=== PATIENT | female | born 1985 | race Caucasian/White ===

== ENCOUNTER 2017-06-18 11:32 | Emergency (ER) | payer OTHER, SELFPAY ==
[2017-06-18 11:48] VITALS: BP 106/72; PULSE 92; RESP 18; TEMP 98.6; O2SAT 98
--- NOTE | 2017-06-18 12:33 | C.PDOC ---
History Of Present Illness 31 year old female is brought to the ED after rapid response was called. Patient was was having her first blood work check up, after which she became dizzy patient managed to catch herself and a supervisor laboratory helped her lay down. On the ED patient states feeling a little dizzy but denies any other symptoms. Vital signs are stable, patient states that her dizziness resolved, feels much better and wants to go home. Time Seen by Provider: 06/18/17 12:27 Chief Complaint (Nursing): Dizziness/Lightheaded History Per: Patient History/Exam Limitations: no limitations Onset/Duration Of Symptoms: Hrs Current Symptoms Are (Timing): Gone Activity At Onset Of Symptoms: Standing Associated Symptoms Preceding Syncopal Episode: Lightheadedness Seizure Or Post-ictal Symptoms: None Fall Associated With With Symptoms: No Severity: None Recent travel outside of the [place]: No Additional History Per: Patient Past Medical History Reviewed: Historical Data, Nursing Documentation, Vital Signs Vital Signs: Last Vital Signs Temp 98.6 F 06/18/17 11:47 Pulse 92 H 06/18/17 11:47 Resp 18 06/18/17 11:47 BP 106/72 06/18/17 11:47 Pulse Ox 98 06/18/17 12:33 - Medical History PMH: No Chronic Diseases Surgical History: No Surg Hx - [facility] Procedures ANESTH INJECT-SPIN CANAL (08/04/13) ARTIF RUPT MEMBRANES NEC (08/04/13) MONITORING NOS (07/21/13) MANUAL ASSIST DELIV NEC (08/04/13) MEDICAL INDUCTION LABOR (08/04/13) Family History: States: Unknown Family Hx - Social History Hx Alcohol Use: No Hx Substance Use: No - Immunization History Hx Tetanus Toxoid Vaccination: No Hx Influenza Vaccination: No Hx Pneumococcal Vaccination: No Review Of Systems Constitutional: Negative for: Fever, Chills Cardiovascular: Negative for: Chest Pain, Palpitations Respiratory: Negative for: Cough, Shortness of Breath Gastrointestinal: Negative for: Nausea, Vomiting, Abdominal Pain Skin: Negative for: Rash Neurological: Negative for: Weakness, Numbness Physical Exam - Physical Exam Appears: Non-toxic, No Acute Distress Skin: Normal Color, Warm, Dry Head: Atraumatic, Normacephalic Eye(s): bilateral: Normal Inspection Nose: No Discharge, No Deformity Oral Mucosa: Moist Neck: Normal ROM, Supple Chest: Symmetrical Cardiovascular: Rhythm Regular, No Murmur Respiratory: Normal Breath Sounds, No Rales, No Rhonchi, No Wheezing Gastrointestinal/Abdominal: Soft, No Tenderness, No Guarding, No Rebound Extremity: Normal ROM, No Deformity, No Swelling Neurological/Psych: Oriented x3, Normal Speech, Normal Cognition Gait: Steady ED Course And Treatment O2 Sat by Pulse Oximetry: 98 (On RA) Pulse Ox Interpretation: Normal Disposition Counseled Patient/Family Regarding: Diagnosis, Need For Followup - Disposition Disposition: HOME/ ROUTINE Disposition Time: 12:32 Condition: STABLE Forms: Gen Discharge Inst Sinhala, Siklu (Sinhala) - Clinical Impression Clinical Impression: Vaso vagal episode - Scribe Statement The provider has reviewed the documentation as recorded by the Scribe Pratik Naik All medical record entries made by the Scribe were at my direction and personally dictated by me. I have reviewed the chart and agree that the record accurately reflects my personal performance of the history, physical exam, medical decision making, and the department course for this patient. I have also personally directed, reviewed, and agree with the discharge instructions and disposition.
== END 2017-06-18 12:37 | disposition home or self-care (01) ==
LOC: C.ER 11:32
DX: R55 Syncope and collapse (principal)

== ENCOUNTER 2018-01-01 07:00 | Inpatient (IN) | payer MEDICAID ==
--- NOTE | 2018-01-01 08:12 | OBADHP ---
Datetime: 01/01/2018 07:57 Admit Comment, IP Provider: 32 yo female with an IUP ar 41 weeks and admitted for scheduled IOL for postdates Admits to adequate FM. Denies LOF, Vaginal bleeding GBS Neg, All labs negative, Rh + Will admit to L_D and Anticipate Vaginal Delivery Pelvic Type - PN: Adequate Extremities - PN: Normal Abdomen - PN: Normal Back - PN: Normal Breast - PN: Not Done Lungs - PN: Normal Heart - PN: Normal Thyroid - PN: Normal Neurologic - PN: Normal HEENT - PN: Normal General - PN: Normal Presentation-Admit: Vertex FHR - Baseline A Provider: 120 Membranes, Provider: Intact Gestation - Est Wks by US: 41.0 IP Chief Complaint: Scheduled induction of labor NICHD Variability Prov Fetus A: Moderate 6-25bpm NICHD Accel Fetus A IP Provider: 10X10 FHR Category Provider Fetus A: Category I NICHD Decel Fetus A IP Provider: None Genitourinary Exam: Normal DTRs - PN: Normal IP Adm Impression: Postterm, intrauterine ; Intact Membranes IP Admit Plan: Admit to unit; Initiate labor induction protocol
[2018-01-01] MEDS ORDERED: Lactated Ringer's 1,000 ML IV ONE (08:15)
[2018-01-01 08:55] LABS: BASO % 0.5 % (0.0-2.0); EOS # 0.1 K/uL (0.0-0.7); EOS % 0.9 % (0.0-4.0); HEMOGLOBIN 11.4 g/dL (11.0-16.0); LYMPH # 1.8 K/uL (1.0-4.3); LYMPH % 22.6 % (20.0-40.0); MEAN CELL VOLUME 81.8 fL (81.0-99.0); MEAN CORPUSCULAR HEMOGLOBIN 27.5 pg (27.0-31.0); MEAN CORPUSCULAR HGB CONC 33.6 g/dL (33.0-37.0); MEAN PLATELET VOLUME 8.9 fL (7.2-11.7); MONO # 0.3 K/uL (0.0-0.8); NEUT # 5.7 K/uL (1.8-7.0); RBC 4.15 Mil/uL (3.80-5.20); RED CELL DISTRIBUTION WIDTH 17.1 % (11.5-14.5)
[2018-01-01 08:59] LABS: SQUAMOUS EPITHIAL 9 /hpf (0-5); URINE BACTERIA RARE (<OCC); URINE BILIRUBIN NEGATIVE (NEGATIVE); URINE BLOOD NEGATIVE (NEGATIVE); URINE CLARITY Clear (Clear); URINE COLOR Yellow (YELLOW); URINE GLUCOSE (UA) NORMAL (Normal); URINE LEUKOCYTE ESTERASE 2+ Leu/uL (Negative); URINE PROTEIN NEGATIVE (NEGATIVE); URINE UROBILINOGEN NORMAL mg/dL (0.2-1.0)
[2018-01-01 09:20] LABS: BLOOD UREA NITROGEN 6 mg/dL (7-17); CALCIUM 9.2 mg/dl (8.6-10.4); GFR NON-AFRICAN AMERICAN > 60
[2018-01-01] MEDS: Lactated Ringer's 1,000 ML IV SCH (11:44)
[2018-01-01] MEDS ORDERED: Oxytocin 30 UNIT 30 UNITS/500 ML BAG IV SCH (11:45)
[2018-01-01] MEDS ORDERED: Oxytocin 30 UNIT 30 UNITS/500 ML BAG IV ONE (12:56)
[2018-01-02] MEDS ORDERED: Oxytocin 30 UNIT 30 UNITS/500 ML BAG IV ONE (06:50)
[2018-01-02] MEDS ORDERED: Oxytocin 30 UNIT 30 UNITS/500 ML BAG IV SCH (07:00)
[2018-01-02] MEDS ORDERED: Bupivacaine HCl/FentaNYL Cit 100 ML EPI ONE (10:41)
[2018-01-02] MEDS ORDERED: Lidocaine 2% MPF (5 ml) Inj ONE ×3 (12:37→15:05)
--- NOTE | 2018-01-02 13:07 | OBPN ---
Datetime: 01/01/2018 22:25 IP Progress Impression: Reassuring heart rate; Reactive non-stress test IP Informed Consent Obtain: Vaginal Delivery IP Procedures: Sterile Vag Exam IP Progress Plan: Induction; Cervical Ripening Pool Provider: Negative Membranes, Provider: Intact Contraction Comments Provider: Irregular FHR - Baseline A Provider: 120-130 Gestation - Est Wks by US: 41.1 Presentation-Admit: Vertex IP Progress Note Comment: Pt resting comfortable Irregular contractions and not very painful at all FHT's reassuring, VSS Cervidil inserted and will continue monitoring thru the nite Plan to remove Cervidil at 6 AM and to start Pitocin for IOL Hope for a vaginal delivery NICHD Accel Fetus A IP Provider: 10X10 NICHD Variability Prov Fetus A: Moderate 6-25bpm Dilatation, Provider: 2 Effacement, Provider: 50 Station, Provider: -3 NICHD Decel Fetus A IP Provider: None Datetime: 01/01/2018 07:57 FHR Category Provider Fetus A: Category I
[2018-01-02] MEDS ORDERED: Sodium Citrate/Citric Acid 15 ml Sol ONE (13:50)
[2018-01-02] MEDS ORDERED: Sodium Citrate/Citric Acid 15 ml Sol PO ONE (13:50)
[2018-01-02] MEDS ORDERED: cefOXitin IV 2 gm in Saline 2 GM/50 ML BAG IVPB ONE (13:51)
[2018-01-02] MEDS ORDERED: ePHEDrine 50 mg/ml Inj ONE (14:11)
[2018-01-02] MEDS ORDERED: cefOXitin IV 2 gm in Dextrose 2 GM/50 ML BAG IVPB ONE (14:30)
[2018-01-02] MEDS ORDERED: Oxytocin 10 Units/ml Inj ONE (14:48)
[2018-01-02] MEDS ORDERED: Midazolam 2 MG/2 ML VIAL ONE ×3 (15:05→15:25)
[2018-01-02] MEDS ORDERED: Flumazenil 0.1 mg/ml Inj (5ml) IVP ONE (15:07)
[2018-01-02] MEDS ORDERED: Naloxone 0.4 mg/ml Inj (Adult) IVP PRN (16:16)
[2018-01-02] MEDS ORDERED: DiphenhydrAMINE 50 mg/ml Inj IVP PRN (16:16)
--- NOTE | 2018-01-02 16:26 | OBDS ---
DELIVERY PERSONNEL Delivery Doctor: DR Toan Grace Nurse: Chen Reddy Sales And Service Engineer: Bianca Temple RN Anesthesiologist: DR LANDAVERDE MATERNAL INFORMATION Delivery Anesthesia: Epidural Medications in Delivery: PITOCIN 20/metergen/flocead/surjicel Estimated Blood Loss (ml): 800 Placenta Cultured: Yes Maternal Complications: Prolonged Labor > 20 Hrs; Other Other Maternal Complications: ARREST LABOR,FAILUR TO PROGRESS RN Comments: living baby boy apg 9-9 Provider Comments: Primary LTC C/S with delivery of a viable Male from WOO position and with out complications. Apgars 9_9, BW 9lbs, 5 oz. Cord Blood, Cord pH and Placenta sent to Pathology EBL 1000 mls Pt and tolerated the procedure well and both left the operating room in S_S condition LABOR SUMMARY EDC: 12/25/2017 00:00 No. Babies in Womb: 1 Attempted: No Labor Anesthesia: Epidural LABOR INFORMATION Reason for Induction: Postterm Cervical Ripening Agents: Cervidil Oxytocin: Induction Group B Beta Strep: Negative Antibiotics # of Doses: 1 Antibiotics Time of Last Dose: 1400 (Annotations: Data stored by N on behalf of user) Steroids Given: None Reason Steroids Not Administered: Not Applicable MEMBRANES Membranes Rupture Method: Artificial Rupture of Membranes: 01/02/2018 09:43 Length of Rupture (hrs): 4.98 Amniotic Fluid Color: Clear Amniotic Fluid Amount: Small Amniotic Fluid Odor: Normal STAGES OF LABOR Stage 3 hrs: 0 Stage 3 min: 1 CSECTION DELIVERY Primary Indication: Failure of Descent Other Primary Indication: Clinical Macrosomia Secondary Indication: Secondary Arrest of Dilatation CSection Urgency: Emergency CSection Incidence: Primary Labor: Labor Elective: Nonelective CSection Incision: Lower Uterine Transverse BABY A INFORMATION Delivery Date/Time: 01/02/2018 14:42 Method of Delivery: Born in Route : No : N/A Forceps: N/A Vacuum Extraction: N/A Shoulder Dystocia : No SHOULDER DYSTOCIA BABY A Delivery Date/Time: 01/02/2018 14:42 PRESENTATION/POSITION BABY A Presentation: Cephalic Cephalic Presentation: Vertex Breech Presentation: N/A PLACENTA INFORMATION BABY A Placenta Delivery Time : 01/02/2018 14:43 Placenta Method of Delivery: Expressed Placenta Status: Delivered SCORES BABY A Heart Rate 1 min: >100 bpm Resp Effort 1 min: Good Cry Reflex Irritability 1 min: Cough or Sneeze or Pulls Away Muscle Tone 1 min: Active Motion Color 1 min: Body [place], Extremities Blue Resuscitation Effort 1 min: Tactile Stimulation SCORE 1 MIN: 9 Heart Rate 5 min: >100 bpm Resp Effort 5 min: Good Cry Reflex Irritability 5 min: Cough or Sneeze or Pulls Away Muscle Tone 5 min: Active Motion Color 5 min: Body [place], Extremities Blue SCORE 5 MIN: 9 INFANT INFORMATION BABY A Gestational Age at Delivery: 41.0 Gestational Status: Term Infant Outcome : Liveborn Infant Condition : Stable Infant Sex: Male IDENTIFICATION/MEDS BABY A ID Band Number: [id number] ID Band Location: Left Leg; Left Arm Sensor Applied: Yes Sensor Number: [id number] Sensor Location : Cord Clamp WEIGHT/LENGTH BABY A Infant Birthweight (gms): 4235 Weight (lb): 9 Infant Weight (oz): 5 Length Inches: 20.00 Infant Length cms: 50.8 CORD INFORMATION BABY A Nuchal Cord : Around Neck x1, Loose Cord Blood Taken: Yes Infant Suction: Mouth; Nose ASSESSMENT BABY A Complications: None Physical Findings at Delivery: Within Normal Limits Respirations: Appears Normal Belt Machine Operator/ALS Called : No Infant Care By: DR WAYNE Transferred To: Remains with Mother
[2018-01-02] MEDS ORDERED: Oxycodone/Acetaminophen 5/325 mg Tab PO PRN (16:34)
[2018-01-03] MEDS: Lactated Ringer's 1,000 ML IV SCH (00:11)
[2018-01-03 07:52] LABS: MEAN CORPUSCULAR HEMOGLOBIN 27.6 pg (27.0-31.0); MEAN CORPUSCULAR HGB CONC 33.6 g/dL (33.0-37.0); MEAN PLATELET VOLUME 9.1 fL (7.2-11.7); RBC 3.2 Mil/uL (3.80-5.20); RED CELL DISTRIBUTION WIDTH 17.2 % (11.5-14.5)
[2018-01-03 07:56] LABS: HEMOGLOBIN 8.8 g/dL (11.0-16.0); WHITE BLOOD COUNT 12.8 K/uL (4.8-10.8)
[2018-01-03] MEDS: Prenatal Multivit/Folic Acid/Iron Tab PO SCH (09:11)
--- NOTE | 2018-01-03 09:27 | OBPPN ---
Datetime: 01/03/2018 09:08 PP Pain Prov: Within normal limits PP Nausea Prov: Denies PP Flatus Prov: Yes PP BM Prov: No PP Breasts Prov: Normal PP Lungs Prov: Normal PP Abdomen/Uterus Prov: Normal PP Lochia Prov: Normal PP Extremities Prov: Normal PP C/S Incision Prov: Normal PP Progress Prov: Normal PP Comments Phys Exam Prov: Exam: Abd: soft, NT, Uterus Firm below Umbilicus incision- Clean and dry Extr: No calf tenderness PP Impression Prov: Normal progression PP Plan Prov: Continue present management PP Progress Note Prov: POD #1 Pt doign well. Pt is Void + Continue postop care
--- NOTE | 2018-01-04 08:50 | OBPPN ---
Datetime: 01/04/2018 08:44 PP Pain Prov: Within normal limits PP Nausea Prov: Denies PP Flatus Prov: Yes PP BM Prov: No PP Breasts Prov: Normal PP Heart Prov: Normal PP Lungs Prov: Normal PP Abdomen/Uterus Prov: Normal PP Extremities Prov: Normal PP C/S Incision Prov: Normal PP Progress Prov: Normal PP Impression Prov: Normal progression PP Plan Prov: Continue present management PP Progress Note Prov: s: no c/o. pain well controlled w/ motrin. i: pod2cd anemia p: rx feso4 bid for d/c routine pp care incentive oliver IP PP Procedures: None Vital Signs Provider Details PP: hgb 8.8
[2018-01-04] MEDS ORDERED: Docusate-Senna 50 mg-8.6 mg Tab PO ONE (10:00)
[2018-01-04] MEDS: Prenatal Multivit/Folic Acid/Iron Tab PO SCH (10:04)
[2018-01-05 00:39] VITALS: RESP 20
--- NOTE | 2018-01-05 18:55 | OBPPN ---
Datetime: 01/05/2018 14:30 PP Pain Prov: Within normal limits PP Nausea Prov: Denies PP Flatus Prov: Yes PP BM Prov: Yes PP Breasts Prov: Not Done PP Heart Prov: Normal PP Lungs Prov: Normal PP Abdomen/Uterus Prov: Normal PP Lochia Prov: Normal PP Vulva/Perineum Prov: Normal PP CVA Tenderness Prov: Normal PP Extremities Prov: Normal PP C/S Incision Prov: Normal PP Progress Prov: Normal PP Comments Phys Exam Prov: Incision clean, dry and intact PP Impression Prov: Normal progression PP Plan Prov: Discharge PP Progress Note Prov: POD # 3 S/P Primary C/S PP H_H 8.8/26.3 and asymptomatic / B+ Stable and Satisfactory condition and recovery Will D/C home with instructions and Rx for Fe and Colace BID x [address] Marley had left a Rx for Motrin Advised to continue PNV x 3-4 more months Increase po water intake and Fiber in diet F/Up in Clinic in 7-10 days for staple removal or prior if neded IP PP Procedures: None Vital Signs Provider PP: Reviewed; Within Normal Limits
--- NOTE | 2018-01-05 18:57 | OBDCSUM ---
Datetime: 01/05/2018 13:59 Discharged to, Provider: Home Follow up at, Provider: Clinic Disch Instr Activity: Normal activity Disch Instr Diet: Regular Discharge Instructions, Provider: Routine instructions given Discharge Diagnosis, Provider: Term Delivered Discharge Time: 01/05/2018 14:30 Follow up in weeks, Provider: 1 week Contraception discussed, Prov: Yes Disch Activity Restrictions: No exercising; No lifting; No driving; Minimize stair-climbing; No sexu al activity; Nothing in vagina - Cope, tampons, douche Discharge Comment, Provider: POD # 3 S/P Primary C/S PP H_H 8.8/26.3 and asymptomatic / B+ Stable and Satisfactory condition and recovery Will D/C home with instructions and Rx for Fe and Colace BID x [address] Marley had left a Rx for Motrin Advised to continue PNV x 3-4 more months Increase po water intake and Fiber in diet F/Up in Clinic in 7-10 days for staple removal or prior if neded Contraception after Delivery: IUD
[2018-01-05 21:28] VITALS: BP 95/61; PULSE 70; TEMP 98.9; O2SAT 100
--- NOTE | 2018-01-07 03:47 | OP ---
Copied To: Maribeth Joya DO Attending MD: Maribeth Joya DO PROCEDURE DATE: 01/02/2018 PREOPERATIVE DIAGNOSES: 1. Intrauterine at 41 weeks/post dates. 2. Admitted for induction of labor secondary to post dates. 3. Failed induction/arrest of descent/failure to progress. 4. Suspected pseudo macrosomia. POSTOPERATIVE DIAGNOSES: 1. Intrauterine at 41 weeks/post dates. 2. Admitted for induction of labor secondary to post dates. 3. Failed induction/arrest of descent/failure to progress. 4. Suspected pseudo macrosomia. 5. Viable male , delivered. 6. Loose cervical nuchal cord x1. 7. Mild uterine atony, resolved with infusion of Pitocin, Methergine intramuscular. PROCEDURES: 1. Primary low transverse cervical section with delivery of a viable male from right occipitoanterior position with Apgars of 9 and 9 at one and five minutes and a weight of 9 pounds 5 ounces. 2. Loose cervical nuchal cord x1 that was reduced upon delivery of the head. SURGEON: Maribeth Joya DO FRANKFURTER INSPECTOR: Yusef Sweeney MD ANESTHESIA: Spinal. ANESTHESIOLOGIST: Jamaal Key COMPLICATIONS: Uterine atony, easily resolved. SPECIMENS: Cord blood, cord pH, and placenta were sent to Pathology. PREOPERATIVE FINDINGS: The patient is a 32-year-old female, 4, para 3 with an intrauterine at 41 weeks who was admitted for induction of labor secondary to post dates. The patient after a prolonged labor presented with arrest of descent and failure to progress and failed induction with probable pseudo macrosomia diagnosed. At the time of the section, bilateral tubes and ovaries were noted to be within normal limits, and there was no gross pathology noted. ESTIMATED BLOOD LOSS: 1000 mL. PREOPERATIVE NOTE: The procedure, the risks and the possible complications were fully reviewed with the patient to include but not exclusively hemorrhage, infection or injury to bowel, bladder, bilateral tubes and ovaries, internal blood vessels or any other internal organs. The patient verbalized understanding and requested to proceed and signed the consent. DESCRIPTION OF PROCEDURE: The patient was taken to the operating room, she was given a spinal form of anesthesia, and she was sterilely prepped and draped in the usual manner for the above named procedure. The Carter catheter was inserted. A time-out was then carried out as indicated, and after ascertaining an adequate level of anesthesia, the procedure was initiated. The knife was utilized to make a low transverse skin incision in the suprapubic area, and utilizing the Pfannenstiel technique, the abdomen was entered. The bladder flap was developed and placed underneath the Manda blade. The second knife was the utilized to make a low transverse uterine incision in the lower uterine segment, and it was extended horizontally with bandage scissors. The was noted to be OP and then delivered from the PRERNA position. The bulb syringe was utilized to suction the naso and the oropharynx upon delivery of the head and upon completion of the delivery, which was carried out without difficulty. The cord was doubly clamped and transected, and the was passed to the clinical engineering director in attendance for further inspection. The cord blood and the cord pH were obtained and sent and the placenta was spontaneously delivered and sent to Pathology. The uterus was exteriorized through the abdominal incision. The endometrial cavity was cleansed with a moist lap and the uterine incision was the closed utilizing a PDS suture in a full-thickness manner with an adequate closure and adequate hemostasis. Bilateral tubes and ovaries were noted to be within normal limits, and after cleaning the cul-de-sac of blood clots, the uterus was repositioned into the abdominal cavity. Bilateral gutters were also cleansed, and after ascertaining adequate hemostasis at the uterine incision, we proceeded to close the abdomen in layers. The rectus muscle was reapproximated in the midline with a few interrupted sutures of 0 Vicryl and incorporating the peritoneum. The fascia was closed with PDS and the skin was closed with the susan. Sterile dressing was applied, and after evacuating the vagina of blood clots, the procedure was terminated. All instruments and sponges were accounted for x3. The patient and the tolerated the procedure well and they both left the operating room in stable and satisfactory condition. Maribeth Joya DO
== END 2018-01-05 17:10 | disposition home or self-care (01) | DRG 370 ==
LOC: C.4D 07:25 → C.4M 01-02 17:56
PROVIDERS: ADMIT Obstetrics & Gynecology; ATTEND Obstetrics & Gynecology
PROC: 10D00Z1 Extraction of Products of Conception, Low, Open Approach (ICD-10-PCS; principal; 2018-01-02)
PROC: 10907ZC Drainage of Amniotic Fluid, Therapeutic from Products of Conception, Via Natural or Artificial Opening (ICD-10-PCS; 2018-01-02)
PROC: 3E0P7VZ Introduction of Hormone into Female Reproductive, Via Natural or Artificial Opening (ICD-10-PCS; 2018-01-02)
DX: O48.0 Post-term pregnancy (principal); O99.02 Anemia complicating childbirth; O36.63X0 Maternal care for excessive fetal growth, third trimester, not applicable or unspecified; O32.4XX0 Maternal care for high head at term, not applicable or unspecified; O61.0 Failed medical induction of labor; O62.1 Secondary uterine inertia; O63.9 Long labor, unspecified; O69.81X0 Labor and delivery complicated by cord around neck, without compression, not applicable or unspecified; D64.9 Anemia, unspecified; Z3A.41 41 weeks gestation of pregnancy; Z37.0 Single live birth